=== PATIENT | female | born 1965 | race African-American/Black ===

== ENCOUNTER 2016-06-07 17:26 | Emergency (ER) | payer BC ==
[~2016-06-07] VITALS: Ht 160 cm; Wt 70.5 kg
[~2016-06-07 17:26] MED LIST: ACCUPRIL 1010 MG/TAB PO; ALLEGRA180 MG PO; CEFTIN500 MG PO; COZAAR 50MG50 MG/TAB PO; FLOMAX 0.40.4 MG/CAP PO; GLUCOPHAGE XR500 M1 PO; HCTZ; LOPID 600M600 MG/TAB PO; NORCO 325 MG-7.1 TAB PO; PROBIOTIC FORMU1 CAP PO; PROTONIX40 MG/Pack PO; TOPROL; TYLENOL #3 301 UDTAB PO; ZOFRAN ODT4 MG PO
[2016-06-07 17:38] VITALS: BP 127/82; TEMP 99
[2016-06-07 19:03] LABS: INFLUENZA B NEGATIVE
[2016-06-07] MEDS ORDERED: TAMIFLU 75MG75 MG PO (19:35)
[2016-06-07 20:07] VITALS: PULSE 100
== END 2016-06-07 20:08 | disposition home or self-care (01) ==
LOC: COL.ER 17:26
PROVIDERS: Nurse Practitioner
DX: J10.1 Influenza due to other identified influenza virus with other respiratory manifestations (principal); E11.9 Type 2 diabetes mellitus without complications; Z79.84 Long term (current) use of oral hypoglycemic drugs; I10 Essential (primary) hypertension; F17.210 Nicotine dependence, cigarettes, uncomplicated

== ENCOUNTER → 2016-07-05 | Outpatient (CLI) | payer BC ==
[~2016-07-05] MED LIST changes: +TAMIFLU 75MG75 MG PO; +TESSALON P100 MG/CAP PO; +ZITHROMAX 250M250 MG PO
== END ==
LOC: MC.RAD 08:20
DX: Z12.31 Encounter for screening mammogram for malignant neoplasm of breast (principal)

== ENCOUNTER 2017-01-26 15:51 | Emergency (ER) | payer BC ==
[~2017-01-26] VITALS: Ht 160 cm; Wt 72.7 kg
[~2017-01-26 15:51] MED LIST changes: -TESSALON P100 MG/CAP PO; -ZITHROMAX 250M250 MG PO
[2017-01-26 15:53] VITALS: BP 154/85; TEMP 97.5
[2017-01-26 18:16] LABS: INFLUENZA B NEGATIVE
[2017-01-26 19:06] VITALS: PULSE 103
[2017-01-26] MEDS ORDERED: TESSALON P100 MG/CAP PO (19:12)
[2017-01-26] MEDS ORDERED: ZITHROMAX 250M250 MG PO (19:12)
== END 2017-01-26 19:27 | disposition home or self-care (01) ==
LOC: COL.ER 15:51
PROVIDERS: Nurse Practitioner
DX: J40 Bronchitis, not specified as acute or chronic (principal); E11.9 Type 2 diabetes mellitus without complications; I10 Essential (primary) hypertension; F17.210 Nicotine dependence, cigarettes, uncomplicated; Z79.84 Long term (current) use of oral hypoglycemic drugs
CPT/HCPCS: J7512

== ENCOUNTER → 2017-10-31 | Outpatient (CLI) | payer BC ==
[~2017-10-31] MED LIST changes: +TESSALON P100 MG/CAP PO; +ZITHROMAX 250M250 MG PO
== END ==
LOC: MC.RAD 09:00
DX: Z12.31 Encounter for screening mammogram for malignant neoplasm of breast (principal)

== ENCOUNTER 2018-01-11 13:09 | Emergency (ER) | payer BC ==
[~2018-01-11] VITALS: Ht 160 cm; Wt 72.7 kg
[2018-01-11 13:13] VITALS: TEMP 98.9
[2018-01-11 13:36] LABS: COLLECTION METHOD CLEAN CATCH
[2018-01-11 13:41] LABS: BASO # 0.1 (0.0-0.2); BASO % 0.7 % (0.0-2.0); EOS # 0.2 (0.0-0.7); EOS % 2.3 % (0-4.0); GRAN # 4.8 (1.4-6.5); GRAN % 51.2 % (42.2-75.2); HEMOGLOBIN 11.2 g/dl (12.5-16.0); LYMPH # 3.4 (1.2-3.4); LYMPH % 35.9 % (20.0-51.0); MEAN CELL VOLUME 72 fl (80.0-100.0); MEAN CORPUSCULAR HEMOGLOBIN 24 pg (27.0-31.0); MEAN CORPUSCULAR HGB CONC 33 g/dl (33.0-37.0); MONO # 0.9 (0.1-0.6); MONO % 9.4 % (1.7-9.3); PLATELET COUNT 269 K/mm3 (130-400); RED BLOOD COUNT 4.76 M/mm3 (4.10-5.30); REDCELL DISTRIBUTION WIDTH-CV 16.3 % (11.5-14.5)
[2018-01-11 13:42] LABS: HEMATOCRIT 34.1 % (37.0-47.0)
[2018-01-11 13:52] LABS: ALBUMIN 4.6 gm/dL (3.5-5.0); BILIRUBIN,TOTAL 0.3 mg/dL (0.0-1.0); C-REACTIVE PROTEIN 0.8 mg/dL (0.0-0.9); CALCIUM 9.4 mg/dL (8.4-10.2); CREATININE, serum 1.2 mg/dL (0.52-1.25); POTASSIUM 3.7 mmol/L (3.4-5.0); TOTAL PROTEIN 8.2 gm/dL (6.4-8.2)
[2018-01-11 14:02] LABS: MUCOUS Present /lpf; PH 5 (5-8); URINE APPEARANCE Cloudy; URINE BACTERIA Rare /hpf; URINE BILIRUBIN Negative (NEGATIVE); URINE BLOOD 3+ (NEGATIVE); URINE CALCIUM OXALATE CRYSTAL Present /hpf; URINE COLOR Yellow; URINE GLUCOSE Negative (NEGATIVE); URINE KETONE Negative (NEGATIVE); URINE LEUKOCYTE ESTERASE Negative (NEGATIVE); URINE NITRATE Negative (NEGATIVE); URINE PROTEIN(semi-quant) 1+ (NEGATIVE); URINE RBC >50 /hpf; URINE UROBILINOGEN Negative (NEGATIVE)
[2018-01-11] MEDS ORDERED: CEFTIN500 MG PO (14:57)
[2018-01-11] MEDS ORDERED: NORCO 325 MG-51 TAB PO (14:57)
[2018-01-11 15:10] VITALS: BP 135/84; PULSE 90
== END 2018-01-11 15:15 | disposition home or self-care (01) ==
LOC: COL.ER 13:09
PROVIDERS: Emergency Medicine
DX: R10.32 Left lower quadrant pain (principal); N39.0 Urinary tract infection, site not specified; I10 Essential (primary) hypertension; Z87.442 Personal history of urinary calculi; Z87.891 Personal history of nicotine dependence
CPT/HCPCS: J1885; J2405; J3010; J7030; Q9967

== ENCOUNTER → 2020-02-25 | Outpatient (CLI) | payer BC ==
[~2020-02-25] MED LIST changes: +NORCO 325 MG-51 TAB PO
== END ==
LOC: MC.RAD 09:32
DX: Z12.31 Encounter for screening mammogram for malignant neoplasm of breast (principal)

== ENCOUNTER → 2021-01-05 | Outpatient (CLI) | payer BC ==
[~2021-01-05] MED LIST changes: +ERGOCALCIFER50000 IU PO; +HYZAAR 25 MG-101 TAB PO; +IRON TABLETS325 MG PO; +K-DUR 10 MEQ T10 MEQ PO; +K-TAB10 PO; +LOSARTAN/HCTZ 100/25 PO; +MAG-OX 400400 MG/TAB PO
== END ==
LOC: MC.RAD 10:00
DX: N63.11 Unspecified lump in the right breast, upper outer quadrant (principal); N63.20 Unspecified lump in the left breast, unspecified quadrant

== ENCOUNTER → 2021-01-09 | Outpatient (CLI) | payer BC | LOC: MC.RAD 09:58 | DX: N63.10 Unspecified lump in the right breast, unspecified quadrant (principal); Z98.82 Breast implant status ==

== ENCOUNTER 2021-01-30 07:28 | Emergency (ER) | payer BC ==
[~2021-01-30] VITALS: Ht 160 cm; Wt 79.5 kg
[~2021-01-30 07:28] MED LIST changes: -ERGOCALCIFER50000 IU PO; -HYZAAR 25 MG-101 TAB PO; -IRON TABLETS325 MG PO; -K-DUR 10 MEQ T10 MEQ PO; -K-TAB10 PO; -LOSARTAN/HCTZ 100/25 PO; -MAG-OX 400400 MG/TAB PO
[2021-01-30 07:36] VITALS: TEMP 99
[2021-01-30 08:42] LABS: BASO % 0.5 % (0.0-2.0); EOS # 0.1 (0.0-0.7); EOS % 1.6 % (0-4.0); GRAN # 5.6 (1.4-6.5); GRAN % 68.6 % (42.2-75.2); LYMPH # 1.2 (1.2-3.4); MEAN CELL VOLUME 73 fl (80.0-100.0); MEAN CORPUSCULAR HGB CONC 33 g/dl (33.0-37.0); MEAN PLATELET VOLUME 12.8 fl (7.4-10.4); MONO # 1.2 (0.1-0.6); MONO % 14.6 % (1.7-9.3); PLATELET COUNT 224 K/mm3 (130-400); RED BLOOD COUNT 3.94 M/mm3 (4.10-5.30); REDCELL DISTRIBUTION WIDTH-CV 15.6 % (11.5-14.5)
[2021-01-30 08:44] LABS: HEMATOCRIT 28.8 % (37.0-47.0); HEMOGLOBIN 9.4 g/dl (12.5-16.0); MEAN CORPUSCULAR HEMOGLOBIN 24 pg (27.0-31.0)
[2021-01-30 08:48] LABS: COLLECTION METHOD CLEAN CATCH
[2021-01-30 08:48] LABS: C-REACTIVE PROTEIN 7.1 mg/dL (0.0-0.9)
[2021-01-30] MEDS ORDERED: ZOFRAN ODT4 MG PO (08:48)
[2021-01-30 08:56] LABS: AMORPHOUS CRYSTAL Present /uL; MUCOUS Present /lpf; PH 5 (5-8); SQUAMOUS EPITHELIAL 20-50 /hpf; URINE APPEARANCE Turbid; URINE BACTERIA Moderate /hpf; URINE BILIRUBIN Negative (NEGATIVE); URINE BLOOD 2+ (NEGATIVE); URINE COLOR Amber; URINE GLUCOSE Negative (NEGATIVE); URINE KETONE Negative (NEGATIVE); URINE LEUKOCYTE ESTERASE Trace (NEGATIVE); URINE NITRATE Negative (NEGATIVE); URINE PROTEIN(semi-quant) 1+ (NEGATIVE)
[2021-01-30] MEDS ORDERED: NORCO 325 MG-51 TAB PO (09:08)
[2021-01-30 09:41] LABS: ALBUMIN 4.5 gm/dL (3.5-5.0); BILIRUBIN,TOTAL 0.5 mg/dL (0.0-1.0); CALCIUM 7.6 mg/dL (8.4-10.2); CREATININE, serum 3.13 (0.52-1.25); POTASSIUM 3.1 mmol/L (3.4-5.0); TOTAL PROTEIN 8.4 gm/dL (6.4-8.2)
[2021-01-30 10:54] LABS: COLLECTION METHOD CLEAN CATCH
[2021-01-30 11:08] LABS: MUCOUS Present /lpf; PH 5 (5-8); SQUAMOUS EPITHELIAL 0-2 /hpf; URINE APPEARANCE Cloudy; URINE BACTERIA Rare /hpf; URINE BILIRUBIN Negative (NEGATIVE); URINE BLOOD 2+ (NEGATIVE); URINE COLOR Yellow; URINE GLUCOSE Negative (NEGATIVE); URINE KETONE Negative (NEGATIVE); URINE LEUKOCYTE ESTERASE Negative (NEGATIVE); URINE NITRATE Negative (NEGATIVE); URINE PROTEIN(semi-quant) 1+ (NEGATIVE); URINE UROBILINOGEN Negative (NEGATIVE)
[2021-01-30 11:53] LABS: CREATININE, serum 2.96 (0.52-1.25); POTASSIUM 3.1 mmol/L (3.4-5.0)
[2021-01-30] MEDS ORDERED: K-DUR 10 MEQ T10 MEQ PO (12:11)
[2021-01-30 12:36] VITALS: BP 120/61; PULSE 68
== END 2021-01-30 12:38 | disposition home or self-care (01) ==
LOC: COL.ER 07:28
PROVIDERS: Family Medicine
DX: K52.9 Noninfective gastroenteritis and colitis, unspecified (principal); S93.401A Sprain of unspecified ligament of right ankle, initial encounter; I10 Essential (primary) hypertension; E86.0 Dehydration; D64.9 Anemia, unspecified; N39.0 Urinary tract infection, site not specified; N20.0 Calculus of kidney; J20.9 Acute bronchitis, unspecified; J10.1 Influenza due to other identified influenza virus with other respiratory manifestations; Z79.899 Other long term (current) drug therapy; X50.1XXA Overexertion from prolonged static or awkward postures, initial encounter
CPT/HCPCS: J2405; J7030; J7120

== ENCOUNTER → 2021-03-19 | Outpatient (CLI) | payer BC ==
[~2021-03-19] MED LIST changes: +ERGOCALCIFER50000 IU PO; +HYZAAR 25 MG-101 TAB PO; +IRON TABLETS325 MG PO; +K-DUR 10 MEQ T10 MEQ PO; +K-TAB10 PO; +LOSARTAN/HCTZ 100/25 PO; +MAG-OX 400400 MG/TAB PO
== END ==
LOC: MC.RAD 12:49
DX: C50.411 Malignant neoplasm of upper-outer quadrant of right female breast (principal)
CPT/HCPCS: A9541

== ENCOUNTER 2021-03-20 05:32 | Day surgery (SDC) | payer BC ==
[2021-03-20] VITALS (11 sets, daily range): BP systolic 111–137; BP diastolic 67–88; PULSE 72–103; TEMP 97.8–99
[~2021-03-20] VITALS: Ht 160 cm; Wt 82.9 kg
[~2021-03-20 05:32] MED LIST changes: -ERGOCALCIFER50000 IU PO; -HYZAAR 25 MG-101 TAB PO; -IRON TABLETS325 MG PO; -K-TAB10 PO; -LOSARTAN/HCTZ 100/25 PO; -MAG-OX 400400 MG/TAB PO
[2021-03-20] MEDS ORDERED: K-TAB10 PO (06:59)
[2021-03-20] MEDS ORDERED: LOSARTAN/HCTZ 100/25 PO (07:00)
[2021-03-20] MEDS ORDERED: LOPID 600M600 MG/TAB PO (07:00)
--- NOTE | 2021-03-20 21:40 | NUR ---
Pt. sitting up in bed. Pt. is A&OX3, assessment complete. INt to lt. forearm patent. Incision to rt. breast well approximated, Incision to rt. underarm with gauze and REGLA drain. REGLA with bloody drainage noted. Pt. reports pain at a 5 on pain scale, gave pain meds per orders. Pt. denies further needs, call light within reach.
[2021-03-21 03:03] VITALS: BP 121/71; PULSE 85; TEMP 98.1
[2021-03-21] MEDS ORDERED: NORCO 325 MG-51 TAB PO (07:22)
[2021-03-21 08:00] VITALS: BP 112/69; PULSE 83; TEMP 98
--- NOTE | 2021-03-21 09:30 | NUR ---
Patient alert and oriented, answers questions appropriately. See assessment. Right breast incision with edges well approximated, no redness or drainage noted. Left axillary node dissection site with REGLA in place, gauze dressing CDI. Moderate amount of bloody drainage noted in REGLA drain. REGLA education reviewed with patient, will re-educate with discharge paperwork. Post op exercises reviewed with patient. No c/o at this time.
--- NOTE | 2021-03-21 10:08 | NUR ---
electronics utility worker met with patient to discuss discharge planning. Patient plans to discharge to home, today, where she resides with her spouse. Patient states she has two adult children in [place] and they, along with her spouse will assist with any needs and support. Patient's primary care provider is Dr Aguilar. Patient is employed at [employer] and she states she is off work the rest of this week and has plenty of leave time to use if she needs it. Patient denies having any difficulty obtaining her prescriptions and has insurance coverage. Patient states she does not have any advance directives and declines worker's offer at this time to make any or receive information. Patient plans discharge home today.
--- NOTE | 2021-03-21 12:27 | NUR ---
Discharge instructions reviewed with patient, verbalized understanding. REGLA drain cares/education with return demonstration. Patient states she is comfortable with REGLA drain cares. Patient discharged via wheelchair to auto/home with spouse at 1200.
== END 2021-03-21 12:00 | disposition home or self-care (01) ==
LOC: SDCO 05:32 → SURG 14:30 → SDCO 03-21 12:00
DX: C50.411 Malignant neoplasm of upper-outer quadrant of right female breast (principal); C77.3 Secondary and unspecified malignant neoplasm of axilla and upper limb lymph nodes; I10 Essential (primary) hypertension; E78.5 Hyperlipidemia, unspecified; K21.9 Gastro-esophageal reflux disease without esophagitis; Z85.3 Personal history of malignant neoplasm of breast; Z79.899 Other long term (current) drug therapy; Z87.891 Personal history of nicotine dependence; Z98.51 Tubal ligation status; Z79.84 Long term (current) use of oral hypoglycemic drugs; Z79.891 Long term (current) use of opiate analgesic; Z83.3 Family history of diabetes mellitus
CPT/HCPCS: OP; A4648; J0690; J1100; J1170; J1580; J2175; J2270; J2405; J2704; J3010; J7030; J7120; Q4122

== ENCOUNTER 2021-04-20 07:56 | Day surgery (SDC) | payer BC ==
[~2021-04-20] VITALS: Ht 160 cm; Wt 82.6 kg
[~2021-04-20 07:56] MED LIST changes: +K-TAB10 PO; +LOSARTAN/HCTZ 100/25 PO
[2021-04-20] MEDS ORDERED: HYZAAR 25 MG-101 TAB PO (08:48)
[2021-04-20] MEDS ORDERED: IRON TABLETS325 MG PO (08:49)
[2021-04-20] MEDS ORDERED: ERGOCALCIFER50000 IU PO (08:49)
[2021-04-20] MEDS ORDERED: MAG-OX 400400 MG/TAB PO (08:49)
[2021-04-20 10:55] VITALS: BP 106/76; PULSE 75; TEMP 97
--- NOTE | 2021-04-20 10:55 | NUR ---
The patient arrived back to [facility] from the operating room at this time. The patient appears alert and oriented and denies any pain or nausea at this time. The patient has a paper tape and gauze dressing to her left upper chest that appears clean, dry and intact. Post operative vital signs were started at this time. The patient agrees to try some apple juice and a blueberry muffin. Call light is within reach. Will continue to monitor the patient.
[2021-04-20 11:10] VITALS: BP 124/86; PULSE 76
--- NOTE | 2021-04-20 11:10 | NUR ---
The patient appears to be toleating the food and drink well. She denies wanting anything further to eat or drink at this time. Vital signs appear stable. Will continue to monitor the patient.
[2021-04-20 11:25] VITALS: BP 128/86; PULSE 74
--- NOTE | 2021-04-20 11:25 | NUR ---
The patient verbalizes a desire to be discharged home. The patient's was called to pull up to the patient entrance to get the patient and take her home.
--- NOTE | 2021-04-20 11:40 | NUR ---
Discharge instructions were reviewed with the patient at this time. She verbalized understanding and has no questions for the nurse at this time. The patient's IV to her left hand was removed and a pressure dressing was applied to the site. The nurse instructed the patient to get dressed and notify the staff when she is ready to be escorted out.
--- NOTE | 2021-04-20 11:50 | NUR ---
The patient was escorted out via wheelchair to a private vehicle by MEIR Whalen. The patient's belongings and discharge paperwork were sent with her. The patient's is present to drive her home.
[2021-04-20 12:27] VITALS: BP 114/70; PULSE 79; TEMP 97.5
== END 2021-04-20 11:50 | disposition home or self-care (01) ==
LOC: SDCO 07:56
DX: C50.911 Malignant neoplasm of unspecified site of right female breast (principal); C77.3 Secondary and unspecified malignant neoplasm of axilla and upper limb lymph nodes; I10 Essential (primary) hypertension; E78.5 Hyperlipidemia, unspecified; Z90.11 Acquired absence of right breast and nipple; Z79.899 Other long term (current) drug therapy; Z87.891 Personal history of nicotine dependence
CPT/HCPCS: C1788; J0690; J1100; J1644; J2250; J2405; J2704; J3010; J7120

== ENCOUNTER 2021-11-28 08:58 | Outpatient (RCR) | payer BC ==
[~2021-11-28 08:58] MED LIST changes: +ERGOCALCIFER50000 IU PO; +HYZAAR 25 MG-101 TAB PO; +IRON TABLETS325 MG PO; +MAG-OX 400400 MG/TAB PO
== END 2021-12-16 | disposition home or self-care (01) ==
LOC: MKS.ESL.PT
DX: C50.411 Malignant neoplasm of upper-outer quadrant of right female breast (principal); I89.0 Lymphedema, not elsewhere classified

== ENCOUNTER → 2022-02-08 | Outpatient (CLI) | payer BC | LOC: MC.RAD 08:26 | DX: Z12.31 Encounter for screening mammogram for malignant neoplasm of breast (principal); C77.3 Secondary and unspecified malignant neoplasm of axilla and upper limb lymph nodes; Z85.3 Personal history of malignant neoplasm of breast; Z17.0 Estrogen receptor positive status [ER+]; Z80.3 Family history of malignant neoplasm of breast ==

== ENCOUNTER 2024-01-13 06:31 | Observation (INO) | payer BC ==
[~2024-01-13] VITALS: Ht 160 cm; Wt 75.3 kg
[~2024-01-13 06:31] MED LIST changes: +ASPIRIN E.C. 8181 MG PO; +CEPHALEXIN500 M1 PO; +COMPLETE MULTI1 TAB PO; +K-DUR20 MEQ PO; +NEURONTIN300 MG/CAP PO; +PLAVIX 75MG TAB75 MG PO; +PROTONIX 40MG T40 MG PO; +VITAMIN D31000 I1 PO
[2024-01-13] MEDS ORDERED: NS 1,000 ML IV ONE (07:00)
[2024-01-13] MEDS ORDERED: Ondansetron 4 MG/2 ML VIAL IV ONE (07:00)
[2024-01-13 07:02] LABS: EOS # 0.1 K/mm3 (0.0-0.7); EOS % 1.7 % (0.0-4.0); GRAN # 2.3 K/mm3 (1.4-6.5); GRAN % 55.6 % (42.2-75.2); HEMATOCRIT 37.4 % (37.0-47.0); HEMOGLOBIN 11.9 g/dl (12.5-16.0); LYMPH # 1.2 K/mm3 (1.2-3.4); LYMPH % 30.1 % (20.0-51.0); MEAN CELL VOLUME 84 fl (80.0-100.0); MEAN CORPUSCULAR HEMOGLOBIN 27 pg (27-31); MEAN CORPUSCULAR HGB CONC 32 g/dl (33.0-37.0); MEAN PLATELET VOLUME 12.4 fl (7.4-10.4); MONO # 0.5 K/mm3 (0.1-0.6); MONO % 11.4 % (1.7-9.3); PLATELET COUNT 185 K/mm3 (130-400); RED BLOOD COUNT 4.46 M/mm3 (4.10-5.30); REDCELL DISTRIBUTION WIDTH-CV 13.7 % (11.5-14.5)
[2024-01-13 07:10] LABS: COLLECTION METHOD CLEAN CATCH
[2024-01-13 07:19] LABS: URINE APPEARANCE CLOUDY (CLEAR/HAZY); URINE BLOOD 1+ (NEGATIVE); URINE COLOR YELLOW (YELLOW); URINE GLUCOSE NEGATIVE (NEGATIVE); URINE KETONE TRACE (NEGATIVE); URINE NITRATE NEGATIVE (NEGATIVE); URINE PROTEIN(semi-quant) 1+ (NEGATIVE); URINE UROBILINOGEN 0.2 E.U/dL (0.2-1.0)
[2024-01-13 07:35] LABS: URINE BACTERIA MODERATE /hpf (NONE SEEN); URINE RBC 0-2 /hpf (0-2); URINE WBC 0-2 /hpf (0-2)
[2024-01-13 07:35] LABS: ALANINE AMINOTRANSFERASE 16 U/L (0-55); ALBUMIN 3.7 g/dL (3.5-5.0); ALKALINE PHOSPHATASE 71 U/L (40-150); ANION GAP 19 mmol/L (7-16); AST,SGOT 23 U/L (5-34); BILIRUBIN,TOTAL 0.5 mg/dL (0.2-1.2); BLOOD UREA NITROGEN 37 mg/dL (10-20); CHLORIDE 103 mEq/L (98-107); CREATININE, serum 2.83 mg/dL (0.57-1.11); GLUCOSE 133 mg/dL (70-99); SODIUM 138 mEq/L (136-145); TOTAL PROTEIN 8.1 g/dl (6.2-8.1)
[2024-01-13 07:39] LABS: POTASSIUM 2.9 mEq/L (3.5-4.5)
[2024-01-13 07:57] LABS: LIPASE 114 U/L (8-78)
[2024-01-13 07:59] LABS: MAGNESIUM < 0.9 mg/dL (1.6-2.6)
[2024-01-13] MEDS ORDERED: VERZENIO100 MG PO (08:01)
--- NOTE | 2024-01-13 09:10 | NUR ---
Patient to room 359 from the ED by wheelchair. A&Ox4. VSS. IV CDI, fluids infusing. Denies pain and discomfort. Reports being cold, warm blankets provided. Nurse oriented the patient to location, call light and room. No further needs expressed from the patient. Call light within reach
[2024-01-13 09:15] VITALS: BP 110/74; PULSE 85; TEMP 98.2
[2024-01-13 11:07] VITALS: BP 115/75; PULSE 90; TEMP 98.2
[2024-01-13] MEDS ORDERED: Magnesium Oxide 400 MG TAB PO SCH (11:37)
[2024-01-13] MEDS ORDERED: Magnesium Sulfate 8% 50 ML IV ONE (11:45)
[2024-01-13] MEDS ORDERED: *Potassium Replacement Protocol MC SCH (11:45)
[2024-01-13] MEDS ORDERED: LR 1,000 ML IV SCH (11:45)
[2024-01-13] MEDS ORDERED: Ondansetron 4 MG/2 ML VIAL IV PRN (11:45)
[2024-01-13] MEDS ORDERED: Potassium Bicarbonate/Citrate 20 MEQ Effervescent TAB PO ONE ×2 (11:45→19:15)
[2024-01-13] MEDS ORDERED: Acetaminophen 500 MG TAB PO PRN (11:45)
[2024-01-13 16:37] VITALS: BP 107/66; PULSE 78; TEMP 98.4
[2024-01-13 20:00] VITALS: BP 121/77; PULSE 89; TEMP 98.2
[2024-01-13 21:00] VITALS: BP_SYST 121
[2024-01-13] MEDS ORDERED: Gabapentin 300 MG CAP PO SCH (21:00)
[2024-01-13] MEDS ORDERED: Gemfibrozil 600 MG TAB PO SCH (21:00)
[2024-01-13 23:50] VITALS: BP 114/77; PULSE 83; TEMP 98.2
[2024-01-14 01:00] VITALS: BP_SYST 114
--- NOTE | 2024-01-14 01:33 | NUR ---
PT IS RESTING IN THE BED WATCHING TV. SHE DID EAT HER DINNER AND STATES SHE DOES NOT HAVE ANY NAUSEA AT THIS TIME. SHE DOES STATE SHE IS STILL HAVING THE DIARRHEA. SHE IS ALERT AND ORIENTED. SHE IS ON ROOM AIR. SHE IS GETTING UP TO VOID. SHE IS STILL GETTING POTASSIUM REPLACEMENT BASED ON HER GFR AND K LEVELS. SHE HAS ONE IV WITH FLUIDS INFUSING. SHE HAS HER CALL FRY AT THE BEDSIDE
[2024-01-14 04:00] VITALS: BP 115/71; PULSE 87; TEMP 97.9
[2024-01-14 05:00] VITALS: BP_SYST 115
[2024-01-14 07:13] LABS: CALCIUM 8.6 mg/dL (8.4-10.2); CREATININE, serum 1.56 mg/dL (0.57-1.11); POTASSIUM 3.4 mEq/L (3.5-4.5)
[2024-01-14 07:20] LABS: TROPONIN-I 0.029 ng/mL (0.00-0.033)
[2024-01-14 07:25] VITALS: BP 117/81; PULSE 75; TEMP 97.7
[2024-01-14] MEDS ORDERED: Potassium Bicarbonate/Citrate 20 MEQ Effervescent TAB PO SCH (07:30)
[2024-01-14 07:37] LABS: MAGNESIUM 1.7 mg/dL (1.6-2.6)
[2024-01-14 08:00] VITALS: BP_SYST 117
--- NOTE | 2024-01-14 08:00 | NUR ---
PATIENT RESTING IN BED. ALERT AND ORIENTED. SHIFT ASSESSMENT COMPLETE. DENIES PAIN OR DISCOMFORT. ALL NEEDS MET DURING THIS VISIT. CALL LIGHT WITHIN REACH. WLL MONITOR
[2024-01-14] MEDS ORDERED: Cholecalciferol (Vit D3) 1000 Units TAB PO SCH (09:00)
[2024-01-14] MEDS ORDERED: Ferrous Sulfate 325 MG TAB PO SCH (09:00)
[2024-01-14] MEDS ORDERED: ZOFRAN 4MG T4 MG/TAB PO (10:39)
[2024-01-14 11:21] VITALS: BP 119/73; PULSE 78; TEMP 97.7
--- NOTE | 2024-01-14 13:39 | NUR ---
STUDENT NURSE DISCONTINUED PATIENT'S IV TO LEFT AC. PATIENT TOLERATED WELL. THIS RN PROVIDED PATIENT WITH DISCHARGE EDUCATION AND INSTRUCTIONS. ALL QUESTIONS ANSWERED.
--- NOTE | 2024-01-14 14:12 | NUR ---
PATIENT ESCORTED OFF UNIT AT APPROX 1400. ALL BELONGINGS WITH PATIENT.
== END 2024-01-14 14:00 | disposition home or self-care (01) ==
LOC: COL.ER 06:31 → MEDICAL 08:26
PROVIDERS: Emergency Medicine; ADMIT Internal Medicine
DX: N17.9 Acute kidney failure, unspecified (principal); N18.9 Chronic kidney disease, unspecified; C50.919 Malignant neoplasm of unspecified site of unspecified female breast; E78.5 Hyperlipidemia, unspecified; E83.42 Hypomagnesemia; E87.6 Hypokalemia; I10 Essential (primary) hypertension; R19.7 Diarrhea, unspecified; Z79.899 Other long term (current) drug therapy; Z79.82 Long term (current) use of aspirin; Z87.891 Personal history of nicotine dependence
CPT/HCPCS: G0378; J2405; J3475; J7030; J7120

== ENCOUNTER 2024-03-19 07:43 | Emergency (ER) | payer BC ==
[~2024-03-19] VITALS: Ht 160 cm; Wt 73.6 kg
[~2024-03-19 07:43] MED LIST changes: +VERZENIO100 MG PO; +ZOFRAN 4MG T4 MG/TAB PO
[2024-03-19 07:56] VITALS: TEMP 98.7
[2024-03-19 08:29] LABS: BASO % 0.4 % (0.0-2.0); EOS % 0.1 % (0.0-4.0); GRAN # 8.6 K/mm3 (1.4-6.5); GRAN % 79.1 % (42.2-75.2); HEMATOCRIT 26.4 % (37.0-47.0); HEMOGLOBIN 8.5 g/dl (12.5-16.0); LYMPH # 0.8 K/mm3 (1.2-3.4); LYMPH % 7.7 % (20.0-51.0); MEAN CELL VOLUME 83 fl (80.0-100.0); MEAN CORPUSCULAR HEMOGLOBIN 27 pg (27-31); MEAN CORPUSCULAR HGB CONC 32 g/dl (33.0-37.0); MEAN PLATELET VOLUME 12.4 fl (7.4-10.4); MONO # 1.3 K/mm3 (0.1-0.6); PLATELET COUNT 202 K/mm3 (130-400); RED BLOOD COUNT 3.17 M/mm3 (4.10-5.30); REDCELL DISTRIBUTION WIDTH-CV 16.2 % (11.5-14.5)
[2024-03-19] MEDS ORDERED: Ketorolac 30 MG/ML VIAL IV ONE (08:30)
[2024-03-19] MEDS ORDERED: Ondansetron 4 MG/2 ML VIAL IV ONE (08:30)
[2024-03-19] MEDS ORDERED: fentaNYL 50 MCG/ML 2 ML VIAL IV ONE ×3 (08:30→10:45)
[2024-03-19 08:53] LABS: ALBUMIN 3.2 g/dL (3.5-5.0); C-REACTIVE PROTEIN 31.02 mg/dL (0.00-0.50); CALCIUM 7.5 mg/dL (8.4-10.2); CREATININE, serum 1.74 mg/dL (0.57-1.11); TOTAL PROTEIN 8.4 g/dl (6.2-8.1)
[2024-03-19] MEDS ORDERED: NS 500 ML IV ONE (09:00)
[2024-03-19 09:11] LABS: URIC ACID 14.7 mg/dL (2.6-6.0)
[2024-03-19] MEDS ORDERED: dexAMETHasone 10 MG/ML VIAL IV ONE (10:45)
[2024-03-19] MEDS ORDERED: PREDNISONE20 MG PO (12:02)
[2024-03-19] MEDS ORDERED: NORCO 325 MG-51 TAB PO (12:02)
[2024-03-19 12:18] VITALS: BP 124/81; PULSE 88
== END 2024-03-19 12:21 | disposition home or self-care (01) ==
LOC: COL.ER 07:43
PROVIDERS: Emergency Medicine
DX: M10.9 Gout, unspecified (principal); E87.8 Other disorders of electrolyte and fluid balance, not elsewhere classified; E87.6 Hypokalemia; E83.51 Hypocalcemia; Z91.040 Latex allergy status
CPT/HCPCS: J1100; J1885; J2405; J3010; J7040